=== PATIENT | female | born 1995 | race Caucasian/White ===

== ENCOUNTER 2025-02-14 14:34 | Emergency (ER) | payer MEDICAID, OTHER ==
[~2025-02-14] VITALS: Ht 162.6 cm; Wt 98.8 kg
[2025-02-14 14:38] VITALS: BP 123/66; PULSE 99; RESP 15; TEMP 98.7; O2SAT 95
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
[2025-02-14 15:39] LABS: Urine Protein, UAD Negative (Negative)
--- NOTE | 2025-02-14 16:46 | DVH ---
INDICATION: pain TECHNIQUE: Multiple real-time grayscale transabdominal and transvaginal sonographic images along with color and duplex Doppler of the uterus and ovaries were obtained. COMPARISON: None FINDINGS: The uterus measures 8.9 x 5.4 x 5.3 cm. The endometrial stripe measures 4.1 mm. The right ovary measures 3.1 x 1.9 x 2.1 cm. There is a 7 x 6 x 6 cm follicle in the right ovary. The left ovary measures 3.7 x 3.5 x 3.4 cm. There is a 1.5 x 1.1 x 1 cm anechoic lesion in the left o vary. Subsequent color and duplex Doppler interrogation of the ovaries demonstrated symmetric vascular flow to both ovaries, though this does not exclude the possibility of torsion due to the dual blood suppl y. IMPRESSION: 1. Grossly unremarkable pelvic ultrasound. 2. No IUP.
== END 2025-02-14 21:20 | disposition left against medical advice (07) ==
LOC: ER 14:34
DX: O03.88 Urinary tract infection following complete or unspecified spontaneous abortion (principal); N39.0 Urinary tract infection, site not specified; Z3A.01 Less than 8 weeks gestation of pregnancy
CPT/HCPCS: 36415; 76801; 76817; 81001; 84702

== ENCOUNTER 2025-02-15 22:17 | Emergency (ER) | payer MEDICAID ==
[~2025-02-15] VITALS: Ht 162.6 cm; Wt 94.1 kg
--- NOTE | 2025-02-15 22:44 | ED.PDOC ---
History of Present Illness HPI Comments 29-year-old female with no prior significant past medical history presents to the ED with a chief complaint of abnormal vaginal bleeding. Patient states that her symptoms have been onset for the past 4 days, and she believes she is having a miscarriage at this time. Patient is unsure of how far along she is at this time, no choose , and currently rates her abdominal pain a 10/10. Patient notes she was last seen here at [facility] yesterday. Patient reports having heavy bleeding today, and notes she could not handle the pain anymore. Patient is noted to be alert and oriented x4 GCS is 15 and is ambulatory at this time. Patient denies any dysuria, hematuria, headache, dizziness, generalized weakness, or any other associated symptoms, modifiers at this time. PHYSICAL EXAM: General: Awake, alert and oriented. Mild acute distress. Skin: Skin in warm, dry and intact. Appropriate color for ethnicity. HEENT: The head is normocephalic and atraumatic. Conjunctivae are clear without exudates or hemorrhage. Sclera is non-icteric. EOM are intact. No signs of nystagmus. Eyelids are normal in appearance without swelling or lesions. Oral mucosa is pink and moist Neck: The neck is supple with normal range of motion. No JVD. Cardiac: Heart rate and rhythm are normal. No murmurs, gallops, or rubs are auscultated. Respiratory: No signs of respiratory distress. Lung sounds are clear in all lobes bilaterally without rales, rhonchi, or wheezes. Abdominal: Abdomen is soft, non-tender without distention, guarding or rigidity. Bowel sounds are present and normoactive in all four quadrants. Extremities: Upper and lower extremities are atraumatic in appearance without deformity or edema. Neurological: The patient is awake, alert and oriented to person, place, and time with normal speech. Speech is clear. There is no facial asymmetry. Psychiatric: Appropriate mood and affect. Good judgement and insight. REVIEW OF SYSTEMS: General: No fever, no chills, or fatigue HEENT: No sore throat, no earache, no congestion, no neck pain. Cardiac: No chest pain. No palpitations. Lungs: No shortness of breath, no cough. GI: No nausea, no vomiting, no diarrhea, no constipation, no abdominal pain : No dysuria, frequency, or urgency. No hematuria. Musculoskeletal: No joint pain , no joint swelling, no extremity edema. Skin: No rash, no itching. Neuro: No headache, no dizziness, no weakness Gynecology: Abnormal vaginal bleeding Chief Complaint: Vaginal Bleed Time Seen by MD: 22:42 Reviewed Notes: Nurses Notes, Medications, Allergies Allergies: Coded Allergies: NO KNOWN ALLERGIES (Unverified , 02/14/25) Information Source: Patient Mode of Arrival: Ambulatory Severity: Moderate Timing: Days Duration: Intermittent, Days Prehospital treatment: None Past Medical History PAST MEDICAL HISTORY: Denies Surgical History: Denies all surgeries METAL FINISHER History: Denies all METAL FINISHER Hx Family History Family History: Family hx of DM Social History Smoker: Non-Smoker Alcohol: Denies ETOH Use Drugs: Denies Drug Use Lives In: Home Was a procedure done? Was a procedure done?: No Differential Dx Considerations may include: Ectopic , miscarriage, intrauterine hemorrhoid, X-Ray, Labs, Meds, VS Vital Signs Date Time Temp Pulse Resp B/P (MAP) Pulse Ox O2 Delivery O2 Flow Rate FiO2 02/16/25 01:48 98.3 93 18 145/84 (104) 97 98.3 02/15/25 22:21 98.6 99 18 125/81 98 98.6 Lab Test 02/15/25 22:56 02/15/25 22:31 Range/Units Hemoglobin 13.3 12.2-16.2 g/dL Hematocrit 38.6 36.0-46.0 % Beta HCG, Quantitative 788.8 H 1.5-4.2 mIU/mL Urine Color Light-red Yellow Urine Clarity Ex.turbid Clear Urine pH 6.5 5.0-9.0 Urine Specific [place] 1.022 1.001-1.035 Urine Protein 1+ H Negative Urine Ketones Trace Negative Urine Blood 3+ H Negative /uL Urine Nitrite Negative Negative Urine Bilirubin Negative Negative Urine Urobilinogen Normal Negative mg/dL Urine Leukocyte Esterase 3+ Negative /uL Urine RBC 9426 0 - 4 /hpf Urine Microscopic WBC 144 H 0-5 /HPF Urine Squamous Epithelial Cells Many <5 /hpf Urine Bacteria None seen None Seen /hpf Urine Hyaline Casts Many 0 - 2 /lpf Urine Mucus Few None Seen Urine Glucose Normal Normal mg/dL PATIENT: CATARINA MARIA YESEL ACCT: [id number] UNIT: [id number] : 1995 LOC: ER ROOM / BED: / AGE / SEX: 29 / F ADM STATUS: REG ER SERVICE [id number] ORDERING PHYSICIAN: BONITA WARE MD PROCEDURE(s): OBTVG - OB TRANS VAGINAL US REASON: VAG BLEED ORDER NUMBER(s): [id number], ACCESSION NUMBER(s): [id number] OB EVALUATION, LESS THAN 14 WEEKS CLINICAL HISTORY: vaginal bleeding, pelvic pain, COMPARISON: US OB ULTRASOUND COMP LESS 14WKS on DOS: 02/14/25 TECHNIQUE: Grayscale, color-flow Doppler, and spectral Doppler ultrasound of the pelvis is performed by transabdominal and transvaginal technique. FINDINGS: The uterus measures 7.9 x 4.3 x 4.4 cm. No intrauterine gestational sac or pole identified. Endometrial thickness 0.6 cm. The right ovary measures 3.0 x 1.6 x 3.0 cm. Left ovary measures 4.0 x 3.2 x 3.4 cm. Exophytic right ovarian cyst measuring approximately 7 mm in diameter. Multiple left ovarian cysts / follicles, the largest measuring approximately 1.8 cm in diameter. Both ovaries demonstrate dopplerable blood flow on spectral analysis. No free fluid identified in the cul-de-sac. IMPRESSION: No evidence of intrauterine . Imaging history and findings are sugg estive of failure/miscarriage. Correlate with serial beta HCG testing. ENT: CATARINA MARIA ACCT: [id number] UNIT: [id number] : 1995 LOC: ER ROOM / BED: / AGE / SEX: 29 / F ADM STATUS: REG ER SERVICE [id number] ORDERING PHYSICIAN: BONITA WARE MD PROCEDURE(s): OB4US - OB ULTRASOUND COMP LESS 14WKS REASON: vaginal bleeding, pelvic pain, ORDER NUMBER(s): [id number], ACCESSION NUMBER(s): [id number] OB EVALUATION, LESS THAN 14 WEEKS CLINICAL HISTORY: vaginal bleeding, pelvic pain, COMPARISON: US OB ULTRASOUND COMP LESS 14WKS on DOS: 02/14/25 TECHNIQUE: Grayscale, color-flow Doppler, and spectral Doppler ultrasound of the pelvis is performed by transabdominal and transvaginal technique. FINDINGS: The uterus measures 7.9 x 4.3 x 4.4 cm. No intrauterine gestational sac or pole identified. Endometrial thickness 0.6 cm. The right ovary measures 3.0 x 1.6 x 3.0 cm. Left ovary measures 4.0 x 3.2 x 3.4 cm. Exophytic right ovarian cyst measuring approximately 7 mm in diameter. Multiple left ovarian cysts / follicles, the largest measuring approximately 1.8 cm in diameter. Both ovaries demonstrate dopplerable blood flow on spectral analysis. No free fluid identified in the cul-de-sac. IMPRESSION: No evidence of intrauterine . Imaging history and findings are suggestive of failure/miscarriage. Correlate with serial beta HCG testing. Time of 1ST Reevaluation: 11:12 Reevaluation 1ST: Unchanged Patient Education/Counseling: Diagnosis, Treatment, Need For Follow Up Family Education/Counseling: No Family Present SEPSIS Sepsis Screen Date sepsis recognized/suspect: Feb 15, 2025 Time Sepsis recognized/suspect: 2220 Recent Procedure: No On Antibiotic Therapy: No Respiratory Rate >20: No Heart Rate >90: No Temp<36 C (96.8 F) or >38.3 C: No SBP <90 or MAP <65 mmHG: No New Acute Mental Status Change: No Is the patient on CPAP, BIPAP,: No Physician Orders Ob Ultrasound Comp Less 14wks (02/15/25 22:44) Ob Trans Vaginal Us (02/16/25 00:23) Vital Signs Date Time Temp Pulse Resp B/P (MAP) Pulse Ox O2 Delivery O2 Flow Rate FiO2 02/16/25 01:48 98.3 93 18 145/84 (104) 97 98.3 02/15/25 22:21 98.6 99 18 125/81 98 98.6 Departure 1 Departure Time of Disposition: 01:35 Impression: Primary Impression: Miscarriage Disposition: 01 HOME / SELF CARE / HOMELESS Condition: Stable Additional Instructions: ED DISCHARGE INSTRUCTIONS Instructions: Please read all instructions provided in this packet carefully. Although you have been discharged from the Emergency Department, this does not mean that you have a "clean bill of health". No definitive diagnosis for your symptoms has been made today. It is possible that you are in the process of developing a serious illness. This is why you must return to the ED without fail if any new or worsening symptoms (especially if your symptoms include chest pain, trouble breathing, abdominal pain, fever, headache, confusion, trouble seeing, or trouble walking) It is also very important that you see a primary care provider (PCP) within the next 1-3 days to follow up. If you are unable to get an appointment, return to the ED for re-evaluation. Miscarriage: Care Instructions For some, the loss of a can be very hard. You may wonder why it happened. Miscarriages are common and are not caused by things like exercise or sex. Most happen because the embryo doesn't develop properly. There is no treatment that can stop a miscarriage. If you are having a miscarriage, you have several options. As long as you do not have heavy blood loss, fever, weakness, or other signs of infection, you can let a miscarriage follow its own course. This can take several days. If you don't want to wait, you can take medicine to help the tissue pass. Or you can have a surgical procedure to remove the tissue. Your body will recover over the next several weeks. Having a miscarriage does not mean you cannot have a normal in the future. Follow-up care is a higgins part of your treatment and safety. Be sure to make and go to all appointments, and contact your doctor if you are having problems. It's also a good idea to know your test results and keep a list of the medicines you take. How can you care for yourself at home? You will probably have some vaginal bleeding for 1 to 2 weeks. It may be similar to or slightly heavier than a normal period. The bleeding should get legal advisor after a week. Use sanitary pads until you stop bleeding. Using pads makes it easier to monitor your bleeding. Take an [id number] pain medicine, such as acetaminophen (Tylenol), ibuprofen (Advil, Motrin), or naproxen (Aleve) for cramps. Read and follow all instructions on the label. You may have cramps for several days after the mi scarriage. Do not take two or more pain medicines at the same time unless the doctor or pharmaceutical analyst told you to. Many pain medicines have acetaminophen, which is Tylenol. Too much acetaminophen (Tylenol) can be harmful. Ask your doctor or pharmaceutical analyst when it is okay for you to have sex. You may return to your normal activities if you feel well enough to do so. If you would like to try to get again, it is usually safe whenever you feel ready. Talk with your doctor or pharmaceutical analyst about any future plans. If you do not want to get , ask your doctor or pharmaceutical analyst about control. You can get again before your next period starts if you are not using control. You may be low in iron because of blood loss. Eat a variety of healthy foods and choose foods high in iron and vitamin C. Foods rich in iron include red meat, shellfish, eggs, beans, and leafy green vegetables. Foods high in vitamin C include citrus fruits, tomatoes, and broccoli. Talk to your doctor or pharmaceutical analyst about whether you need to take iron pills or a multivitamin. For some, the loss of a can be very hard. You may have a range of emotions. If you need help coping, talking to family members, friends, a counselor, or your doctor or pharmaceutical analyst may help. You can also call the Maternal Mental Health Hotline at 0-453-[facility] ( ) for support. If you feel very sad or depressed for longer than a couple of weeks, talk to a counselor or your doctor or pharmaceutical analyst. When should you call for help? Call 911 anytime you think you may need emergency care. For example, call if: You have severe vaginal bleeding. You have soaked through one or more pads in an hour, and the bleeding is not slowing down. You have severe pain in your belly or pelvis. You have severe dizziness or lightheadedness, or you passed out (lost consciousness). You suddenly feel confused or have trouble staying awake. You have trouble breathing. You feel you cannot stop from hurting yourself or someone else. Where to get help 24 hours a day, 7 days a week If you or someone you know talks about suicide, self-harm, a mental health crisis, a substance use crisis, or any other kind of emotional distress, get help right away. You can: Call or text the Suicide and Crisis Lifeline at 275. Text HOME to 420688 to access the Crisis Text Line. Consider saving these numbers in your phone. Go to [employer] for more information or to chat online. Contact your doctor or pharmaceutical analyst now or seek immediate medical care if: You have heavy vaginal bleeding. This means that you are soaking through one or more pads in an hour. Or you pass blood clots bigger than an egg. You are dizzy or lightheaded, or you feel like you may faint. You have new or worse pain in your belly or pelvis. You have a fever. You have vaginal discharge that smells bad. Watch closely for changes in your health, and be sure to contact your doctor or pharmaceutical analyst if: You do not get better as expected. Credits for Miscarriage: Care Instructions Current as of: January 24, 2025 Author: [facility] Staff Clinical Review Board All [facility] education is reviewed by a team that includes physicians, nurses, advanced practitioners, registered dieticians, and other healthcare professionals. Critical Care Note Critical Care Time?: No Stability Stability form required: No Heart Score Heart Score: Heart Score Response (Comments) Value History N/A 0 EKG N/A 0 Age N/A 0 Risk Factors N/A 0 Troponin N/A 0 Total 0 I personally scribed for BONITA WARE MD ([email or web address]) on 02/15/25 at 22:44. Elec tronically submitted by Rayshawn Conroy ([email or web address]). I personally scribed for BONITA WARE MD ([email or web address]) on 02/16/25 at 01:20. E lectronically submitted by Rayshawn Conroy ([email or web address]). BONITA WARE MD Feb 15, 2025 22:44
[2025-02-15 23:11] LABS: Hematocrit 38.6 % (36.0-46.0); Hemoglobin 13.3 g/dL (12.2-16.2)
[2025-02-15 23:22] LABS: Urine Protein, UAD 1+ (Negative)
--- NOTE | 2025-02-16 00:42 | DVH ---
OB EVALUATION, LESS THAN 14 WEEKS CLINICAL HISTORY: vaginal bleeding, pelvic pain, COMPARISON: US OB ULTRASOUND COMP LESS 14WKS on DOS: 02/14/25 TECHNIQUE: Grayscale, color-flow Doppler, and spectral Doppler ultrasound of the pelvis is performed by transabdominal and transvaginal technique. FINDINGS: The uterus measures 7.9 x 4.3 x 4.4 cm. No intrauterine gestational sac or pole identified. End ometrial thickness 0.6 cm. The right ovary measures 3.0 x 1.6 x 3.0 cm. Left ovary measures 4.0 x 3.2 x 3.4 cm. Exophytic right ovarian cyst measuring approximately 7 mm in diameter. Multiple left ovarian cysts / follicles, the l argest measuring approximately 1.8 cm in diameter. Both ovaries demonstrate dopplerable blood flow on spectral analysis. No free fluid identified in the cul-de-sac. IMPRESSION: No evidence of intrauterine . Imaging history and findings are suggestive of failu re/miscarriage. Correlate with serial beta HCG testing.
[2025-02-16 01:48] VITALS: BP 145/84; PULSE 93; RESP 18; TEMP 98.3; O2SAT 97
== END 2025-02-16 01:57 | disposition home or self-care (01) ==
LOC: ER 22:17
DX: O03.9 Complete or unspecified spontaneous abortion without complication (principal)
CPT/HCPCS: 36415; 76801; 76817; 81001; 84702; 85014; 85018